=== PATIENT | female | born 1960 | race Caucasian/White ===

== ENCOUNTER 2017-05-07 15:25 | Emergency (ER) | payer BC ==
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
[2017-05-07] MEDS ORDERED: Acetaminophen/HYDROcodone 325-5 MG Tab PO ONE (16:12)
--- NOTE | 2017-05-07 16:41 | CT ---
CT facial bones Technique: Multiple axial sections through the facial bones were obtained. Reconstructed coronal and sagittal images were reviewed. Findings: Paranasal sinuses are clear. No air-fluid levels are seen. Ostiomeatal complexes are clear. Mastoid sinuses and middle ear cavities are clear. Small amount of soft tissue air is seen within the left side of the face presumably due to soft tissue injury. No facial bone fracture is identified. Degenerative change is seen within the cervical spine primarily at C5-C6 with severe disc space narrowing and calcification within the posterior annulus as well as mild posterior and more prominent anterior endplate osteophytes. Impression: 1. Degenerative change within the cervical spine. 2. Soft tissue air within the left side of the face presumably due to soft tissue injury. 3. No acute facial bone abnormality is seen. Diagnostic code #2
[2017-05-07] MEDS ORDERED: Lidocaine 1% with EPINEPHrine 1:100,000 20 ML MDV INJECT ONE (17:48)
[2017-05-07] MEDS ORDERED: Diphtheria,Pertussis(Acell),Tetanus Vaccine 0.5 ML SDV IM ONE (18:31)
== END 2017-05-07 18:44 | disposition home or self-care (01) ==
LOC: JD.ED 15:25
DX: S01.312A Laceration without foreign body of left ear, initial encounter (principal); S01.412A Laceration without foreign body of left cheek and temporomandibular area, initial encounter; S01.81XA Laceration without foreign body of other part of head, initial encounter; S05.02XA Injury of conjunctiva and corneal abrasion without foreign body, left eye, initial encounter; F17.210 Nicotine dependence, cigarettes, uncomplicated; Z23 Encounter for immunization; W22.8XXA Striking against or struck by other objects, initial encounter; V89.2XXA Person injured in unspecified motor-vehicle accident, traffic, initial encounter
CPT/HCPCS: 12013; 70486; 90471; 90715; 99284; A9270; 12011